=== PATIENT | female | born 1980 | race Caucasian/White ===

== ENCOUNTER 2020-02-24 14:39 | Observation (INO) ==
[2020-02-24] MEDS ORDERED: SODIUM CHLORIDE 0.9% 1000ML 500 ML IV ONE (17:32)
--- NOTE | 2020-02-24 17:40 | Emergency Department Note ---
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 CHIEF COMPLAINT: Weakness HISTORY OF PRESENT ILLNESS: The patient is a 40-year-old female who presents to the ED with issues with her speech. She feels dizzy as well. This all began about 4 hours ago while she was at work. She was pushing a cart. She felt foggy, she felt dizzy, she felt like she might faint. She was having difficulty with her speech. She presents by ambulance. The patient states that she has been in baseline health. She felt fine earlier today. She has no history of stroke or TIA. She has not had fever, chills, cough or congestion. She has been in baseline health. There have been no urinary complaints. REVIEW OF SYSTEMS: See HPI for pertinent positives and negatives. A total of ten systems were reviewed and were otherwise negative. PMHx/PSHx: See Below SOCIAL HISTORY: See Below. PHYSICAL EXAM: GENERAL: Patient is in no acute distress. HEENT: No acute trauma, normocephalic atraumatic, mucous membranes moist, no nasal congestion, no scleral icterus. NECK: No stridor, no adenopathy, no meningismus, trachea is midline. LUNGS: Clear to auscultation bilaterally, no wheeze, no rhonchi, breath sounds equal. HEART: Without murmurs gallops or rubs, regular rate and rhythm. ABDOMEN: Soft, nontender, bowel sounds positive, no hernias, no peritonitis. EXTREMITIES: No cyanosis or edema, full range of motion of all the joints without pain or difficulty, no signs for acute trauma. NEUROLOGIC: Oriented x 3. She has some stuttering and difficulty with her speech. There is no slurred speech. A very subtle left facial droop was noted. No cerebellar dysfunction, no extremity drift. SKIN: No rash, no jaundice, no diaphoresis. DIFFERENTIAL DIAGNOSIS: Infection, dehydration, metabolic abnormality, hypo/hyperglycemia, stroke, TIA, medication reaction, electrolyte disturbance, anemia, hypoxia, cardiac sources, intracerebral event, toxicologic, neurologic, as well as other pathologies. EMERGENCY DEPARTMENT COURSE/PROCEDURES: ECG: Indication was potential stroke. The ECG shows a normal sinus rhythm with a rate of 68. The QTc is 444. There is no ST elevation, no PVCs. Continuous Cardiac Monitoring: An order was placed for continuous cardiac monitoring. The monitor shows a rate of 71 with normal sinus rhythm. Critical Care Note: I have personally spent greater than 48 minutes of critical care time in the direct management of this patient. This includes bedside care, interpretation of diagnostic studies, and testing, discussion with consultants, patient, and family members, and other required patient management activities. This 48 minutes is in excess of all separately billable procedures. Orthostatic vital signs were negative. MEDICAL DECISION MAKING: There is no leukocytosis or concerning anemia. There is a normal platelet count. No coagulopathy. No significant electrolyte abnormality or kidney failure. No worrisome liver enzyme elevation. ECG showed a sinus rhythm, no acute ischemia. Cardiac enzyme testing x1 is not consistent with acute cardiac injury. Urinalysis does not show any evidence for infection. Valproic acid level was therapeutic at 54. Brain CT showed no acute bleed or mass-effect. CT angiogram of the head and neck were done, there was no occlusion, no aneurysm, no evidence for dissection. On exam, the patient had some difficulty finding her words and there was some stuttering of her speech. No slurred speech. No extremity deficits. During the patient's stay, she began complaining of a mild headache which was bitemporal. The patient was made a stroke alert given her presentation. She was seen by the [place] neurology team via telemedicine. The patient is not a candidate for TPA given the timeframe, she is out of the therapeutic window. In addition, the neurologist from [place] believes this is more likely a complex migraine than stroke. The patient is being hospitalized for a thorough stroke work-up. MRI has been recommended. The patient was given IV saline, IV Tylenol and IV Depakote. The Depakote IV was requested by the [facility] neurologist. I spoke to the patient and her family, I talked with the case planner. The on- call hospitalist was consulted. Past Med/Surg History Medical History Bipolar disorder Bipolar disorder Depression Surgical History No pertinent past surgical history S/P wrist surgery Social History Smoking Status: Never smoker Tobacco Type: Cigarettes Hx Alcohol Use: No Hx Substance Use: No Preferred Language: Brazilian Communication Ability: Effective Beliefs That Will Affect Care: None Current Living Situation: Spouse Feels Safe at Home: Yes Safety Concerns: Feels Safe At This Time Allergies Allergies Allergy/AdvReac Type Severity Reaction Status Date / Time bee venom protein (honey bee) Allergy Severe Anaphylaxis Verified 02/24/20 19:06 Home Meds Home Medications Medication Instructions Recorded Confirmed epinephrine [EpiPen] 0.3 mg IM DIRECTED PRN 09/02/19 02/24/20 sertraline 100 mg PO HS 09/02/19 02/24/20 divalproex 1,000 mg PO HS 02/24/20 02/24/20 hydroxyzine HCl 25 mg PO BID 02/24/20 02/24/20 Results & Data (ED) Vital Signs Vital Signs - 24 hr 02/24/20 14:58 02/24/20 17:22 02/24/20 17:24 Temperature 36.9 C Temperature Source Oral Pulse Rate - Lying 69 Pulse Rate - Sitting 69 Pulse Rate - Standing 73 Pulse Rate 72 Pulse Rate [Left Finger] 71 Pulse Rate from SpO2 Sensor 71 Pulse Rhythm Regular Pulse Rhythm [Left Finger] Pulse Strength Normal Respiratory Rate 18 16 18 Respiratory Effort / Characteristics Non-Labored Spontaneous Respiratory Depth Normal Respiratory Pattern Regular Blood Pressure - Lying 119/60 Blood Pressure - Sitting 110/77 Blood Pressure- Standing 138/76 Blood Pressure 111/57 L 119/60 Blood Pressure [Left Arm] 126/65 Blood Pressure Mean 75 79 Blood Pressure Mean [Left Arm] 85 Blood Pressure Position Sitting Blood Pressure Position [Left Arm] Pulse Oximetry 98 100 99 Oxygen Delivery Method Room Air Room Air Room Air Sepsis Recent Fever Within 48 Hours No Sepsis New/Unexplained Change in Mental Status No Sepsis Action Taken by Nursing No Action Required 02/24/20 17:25 02/24/20 17:26 02/24/20 17:27 Temperature Temperature Source Pulse Rate - Lying Pulse Rate - Sitting Pulse Rate - Standing Pulse Rate 72 79 81 Pulse Rate [Left Finger] Pulse Rate from SpO2 Sensor 72 83 81 Pulse Rhythm Pulse Rhythm [Left Finger] Pulse Strength Respiratory Rate 18 21 14 Respiratory Effort / Characteristics Respiratory Depth Respiratory Pattern Blood Pressure - Lying Blood Pressure - Sitting Blood Pressure- Standing Blood Pressure 110/77 138/76 Blood Pressure [Left Arm] Blood Pressure Mean 90 104 Blood Pressure Mean [Left Arm] Blood Pressure Position Blood Pressure Position [Left Arm] Pulse Oximetry 99 99 99 Oxygen Delivery Method Sepsis Recent Fever Within 48 Hours Sepsis New/Unexplained Change in Mental Status Sepsis Action Taken by Nursing 02/24/20 17:30 02/24/20 17:31 02/24/20 18:05 Temperature Temperature Source Pulse Rate - Lying Pulse Rate - Sitting Pulse Rate - Standing Pulse Rate 76 79 68 Pulse Rate [Left Finger] Pulse Rate from SpO2 Sensor 76 78 67 Pulse Rhythm Pulse Rhythm [Left Finger] Pulse Strength Respiratory Rate 13 17 18 Respiratory Effort / Characteristics Respiratory Depth Respiratory Pattern Blood Pressure - Lying Blood Pressure - Sitting Blood Pressure- Standing Blood Pressure 124/72 Blood Pressure [Left Arm] Blood Pressure Mean 101 Blood Pressure Mean [Left Arm] Blood Pressure Position Blood Pressure Position [Left Arm] Pulse Oximetry 100 100 99 Oxygen Delivery Method Sepsis Recent Fever Within 48 Hours Sepsis New/Unexplained Change in Mental Status Sepsis Action Taken by Nursing 02/24/20 18:06 02/24/20 18:43 02/24/20 18:44 Temperature Temperature Source Pulse Rate - Lying Pulse Rate - Sitting Pulse Rate - Standing Pulse Rate 67 72 72 Pulse Rate [Left Finger] 71 Pulse Rate from SpO2 Sensor 68 69 71 Pulse Rhythm Pulse Rhythm [Left Finger] Regular Pulse Strength Respiratory Rate 16 18 13 Respiratory Effort / Characteristics Non-Labored Spontaneous Respiratory Depth Normal Respiratory Pattern Regular Blood Pressure - Lying Blood Pressure - Sitting Blood Pressure- Standing Blood Pressure 130/62 145/76 H Blood Pressure [Left Arm] 145/76 H Blood Pressure Mean 98 96 Blood Pressure Mean [Left Arm] 99 Blood Pressure Position Blood Pressure Position [Left Arm] Lying Pulse Oximetry 100 99 99 Oxygen Delivery Method Room Air Sepsis Recent Fever Within 48 Hours Sepsis New/Unexplained Change in Mental Status Sepsis Action Taken by Nursing 02/24/20 19:00 02/24/20 19:14 02/24/20 19:30 Temperature Temperature Source Pulse Rate - Lying Pulse Rate - Sitting Pulse Rate - Standing Pulse Rate 66 64 65 Pulse Rate [Left Finger] Pulse Rate from SpO2 Sensor 66 63 64 Pulse Rhythm Pulse Rhythm [Left Finger] Pulse Strength Respiratory Rate 22 16 21 Respiratory Effort / Characteristics Respiratory Depth Respiratory Pattern Blood Pressure - Lying Blood Pressure - Sitting Blood Pressure- Standing Blood Pressure 130/72 Blood Pressure [Left Arm] Blood Pressure Mean 84 Blood Pressure Mean [Left Arm] Blood Pressure Position Blood Pressure Position [Left Arm] Pulse Oximetry 99 99 99 Oxygen Delivery Method Sepsis Recent Fever Within 48 Hours Sepsis New/Unexplained Change in Mental Status Sepsis Action Taken by Nursing 02/24/20 19:31 02/24/20 19:32 02/24/20 20:00 Temperature Temperature Source Pulse Rate - Lying Pulse Rate - Sitting Pulse Rate - Standing Pulse Rate 65 67 70 Pulse Rate [Left Finger] Pulse Rate from SpO2 Sensor 65 68 71 Pulse Rhythm Pulse Rhythm [Left Finger] Pulse Strength Respiratory Rate 19 21 18 Respiratory Effort / Characteristics Respiratory Depth Respiratory Pattern Blood Pressure - Lying Blood Pressure - Sitting Blood Pressure- Standing Blood Pressure 120/85 Blood Pressure [Left Arm] Blood Pressure Mean 99 Blood Pressure Mean [Left Arm] Blood Pressure Position Blood Pressure Position [Left Arm] Pulse Oximetry 98 98 99 Oxygen Delivery Method Sepsis Recent Fever Within 48 Hours Sepsis New/Unexplained Change in Mental Status Sepsis Action Taken by Nursing 02/24/20 20:01 02/24/20 20:30 02/24/20 20:31 Temperature Temperature Source Pulse Rate - Lying Pulse Rate - Sitting Pulse Rate - Standing Pulse Rate 70 63 64 Pulse Rate [Left Finger] Pulse Rate from SpO2 Sensor 68 64 63 Pulse Rhythm Pulse Rhythm [Left Finger] Pulse Strength Respiratory Rate 14 16 17 Respiratory Effort / Characteristics Respiratory Depth Respiratory Pattern Blood Pressure - Lying Blood Pressure - Sitting Blood Pressure- Standing Blood Pressure 124/82 123/71 Blood Pressure [Left Arm] Blood Pressure Mean 90 81 Blood Pressure Mean [Left Arm] Blood Pressure Position Blood Pressure Position [Left Arm] Pulse Oximetry 97 97 97 Oxygen Delivery Method Sepsis Recent Fever Within 48 Hours Sepsis New/Unexplained Change in Mental Status Sepsis Action Taken by Retirement Medications Current Medication List: was personally reviewed by me Laboratory Data Attestation: I reviewed the patient's lab results. Result diagrams: 02/24/20 17:37 02/24/20 17:37 Lab Results 02/24/20 02/24/20 02/24/20 Range/Units 17:37 17:37 17:37 WBC 9.87 (4.8-10.8) K/uL RBC 4.66 (4.2-5.4) M/uL Hgb 13.3 (12.0-16.0) g/dL Hct 40.4 (37-47) % MCV 86.7 (80-100) fL MCH 28.5 (25-34) pg MCHC 32.9 (32-36) g/dL RDW Std Deviation 42.7 (36.4-46.3) fL RDW Coeff of [place] 13.4 (11.5-14.5) % Plt Count 196 (130-400) K/uL MPV 12.5 H (7.4-10.4) fL Immature Gran % (Auto) 0.2 % Neut % (Auto) 65.1 % Lymph % (Auto) 25.8 % [place] % (Auto) 8.0 % Eos % (Auto) 0.7 % Baso % (Auto) 0.2 % Neut # (Auto) 6.42 (1.4-6.5) K/uL Lymph # (Auto) 2.55 (1.2-3.4) K/uL [place] # (Auto) 0.79 H (0.11-0.59) K/uL Eos # (Auto) 0.07 (0-0.5) K/uL Baso # (Auto) 0.02 (0-0.2) K/uL Immature Gran # (Auto) 0.02 (0.00-0.02) K/uL PT 10.4 (9.0-12.0) Seconds INR 1.0 (0.9-1.1) APTT 26.6 (21.0-31.0) Seconds PTT Ratio 1.0 Sodium (136-145) mmol/L Potassium (3.5-5.1) mmol/L Chloride (98-107) mmol/L Carbon Dioxide (21-32) mmol/L Anion Gap (3-11) BUN (7-18) mg/dl Creatinine (0.6-1.2) mg/dl Est Cr Clr Drug Dosing ml/min Est GFR ( Amer) Est GFR (Non-Af Amer) BUN/Creatinine Ratio (10-20) Glucose (70-99) mg/dl POC Glucose (70-99) mg/dl Calcium (8.5-10.1) mg/dl Magnesium (1.8-2.4) mg/dl Total Bilirubin (0.2-1) mg/dl AST (15-37) U/L ALT (12-78) U/L Alkaline Phosphatase (45-117) U/L Troponin I (0-0.045) ng/ml C-Reactive Protein (0-0.29) mg/dl Total Protein (6.4-8.2) gm/dl Albumin (3.4-5.0) gm/dl Globulin (2.5-4.0) gm/dl Albumin/Globulin Ratio (0.9-2) Urine Color Urine Appearance (Clear) Urine pH (4.5-7.5) Ur Specific [place] (1.000-1.030) Urine Protein (Negative) Urine Glucose (UA) (Negative) Urine Ketones (Negative) Urine Blood (Negative) Urine Nitrite (Negative) Urine Bilirubin (Negative) Urine Urobilinogen (Negative) Ur Leukocyte Esterase (Negative) Urine WBC (Auto) (0-5) /hpf Urine RBC (Auto) (0-4) /hpf U Hyaline Cast (Auto) (0-5) /lpf U Epithel Cells (Auto) (0-5) /lpf Urine Bacteria (Auto) (Negative) Valproic Acid (50-100) mcg/ml Blood Type A Negative Antibody Screen NEGATIVE 02/24/20 02/24/20 02/24/20 Range/Units 17:37 17:37 17:37 WBC (4.8-10.8) K/uL RBC (4.2-5.4) M/uL Hgb (12.0-16.0) g/dL Hct (37-47) % MCV (80-100) fL MCH (25-34) pg MCHC (32-36) g/dL RDW Std Deviation (36.4-46.3) fL RDW Coeff of Contreras (11.5-14.5) % Plt Count (130-400) K/uL MPV (7.4-10.4) fL Immature Gran % (Auto) % Neut % (Auto) % Lymph % (Auto) % [place] % (Auto) % Eos % (Auto) % Baso % (Auto) % Neut # (Auto) (1.4-6.5) K/uL Lymph # (Auto) (1.2-3.4) K/uL [place] # (Auto) (0.11-0.59) K/uL Eos # (Auto) (0-0.5) K/uL Baso # (Auto) (0-0.2) K/uL Immature Gran # (Auto) (0.00-0.02) K/uL PT (9.0-12.0) Seconds INR (0.9-1.1) APTT (21.0-31.0) Seconds PTT Ratio Sodium 139 (136-145) mmol/L Potassium 3.8 (3.5-5.1) mmol/L Chloride 107 (98-107) mmol/L Carbon Dioxide 24 (21-32) mmol/L Anion Gap 8.0 (3-11) BUN 10 (7-18) mg/dl Creatinine 0.70 (0.6-1.2) mg/dl Est Cr Clr Drug Dosing 131.5 ml/min Est GFR ( Amer) 124.7 Est GFR (Non-Af Amer) 107.6 BUN/Creatinine Ratio 14.0 (10-20) Glucose 85 (70-99) mg/dl POC Glucose (70-99) mg/dl Calcium 9.1 (8.5-10.1) mg/dl Magnesium 2.2 (1.8-2.4) mg/dl Total Bilirubin 0.2 (0.2-1) mg/dl AST 9 L (15-37) U/L ALT 16 (12-78) U/L Alkaline Phosphatase 47 (45-117) U/L Troponin I < 0.015 (0-0.045) ng/ml C-Reactive Protein < 0.29 (0-0.29) mg/dl Total Protein 7.7 (6.4-8.2) gm/dl Albumin 3.7 (3.4-5.0) gm/dl Globulin 4.0 (2.5-4.0) gm/dl Albumin/Globulin Ratio 0.9 (0.9-2) Urine Color Urine Appearance (Clear) Urine pH (4.5-7.5) Ur Specific [place] (1.000-1.030) Urine Protein (Negative) Urine Glucose (UA) (Negative) Urine Ketones (Negative) Urine Blood (Negative) Urine Nitrite (Negative) Urine Bilirubin (Negative) Urine Urobilinogen (Negative) Ur Leukocyte Esterase (Negative) Urine WBC (Auto) (0-5) /hpf Urine RBC (Auto) (0-4) /hpf U Hyaline Cast (Auto) (0-5) /lpf U Epithel Cells (Auto) (0-5) /lpf Urine Bacteria (Auto) (Negative) Valproic Acid 54 (50-100) mcg/ml Blood Type Antibody Screen 02/24/20 02/24/20 Range/Units 17:49 18:17 WBC (4.8-10.8) K/uL RBC (4.2-5.4) M/uL Hgb (12.0-16.0) g/dL Hct (37-47) % MCV (80-100) fL MCH (25-34) pg MCHC (32-36) g/dL RDW Std Deviation (36.4-46.3) fL RDW Coeff of Contreras (11.5-14.5) % Plt Count (130-400) K/uL MPV (7.4-10.4) fL Immature Gran % (Auto) % Neut % (Auto) % Lymph % (Auto) % [place] % (Auto) % Eos % (Auto) % Baso % (Auto) % Neut # (Auto) (1.4-6.5) K/uL Lymph # (Auto) (1.2-3.4) K/uL [place] # (Auto) (0.11-0.59) K/uL Eos # (Auto) (0-0.5) K/uL Baso # (Auto) (0-0.2) K/uL Immature Gran # (Auto) (0.00-0.02) K/uL PT (9.0-12.0) Seconds INR (0.9-1.1) APTT (21.0-31.0) Seconds PTT Ratio Sodium (136-145) mmol/L Potassium (3.5-5.1) mmol/L Chloride (98-107) mmol/L Carbon Dioxide (21-32) mmol/L Anion Gap (3-11) BUN (7-18) mg/dl Creatinine (0.6-1.2) mg/dl Est Cr Clr Drug Dosing ml/min Est GFR ( Amer) Est GFR (Non-Af Amer) BUN/Creatinine Ratio (10-20) Glucose (70-99) mg/dl POC Glucose 85 (70-99) mg/dl Calcium (8.5-10.1) mg/dl Magnesium (1.8-2.4) mg/dl Total Bilirubin (0.2-1) mg/dl AST (15-37) U/L ALT (12-78) U/L Alkaline Phosphatase (45-117) U/L Troponin I (0-0.045) ng/ml C-Reactive Protein (0-0.29) mg/dl Total Protein (6.4-8.2) gm/dl Albumin (3.4-5.0) gm/dl Globulin (2.5-4.0) gm/dl Albumin/Globulin Ratio (0.9-2) Urine Color Yellow Urine Appearance Clear (Clear) Urine pH 7.0 (4.5-7.5) Ur Specific [place] 1.019 (1.000-1.030) Urine Protein Negative (Negative) Urine Glucose (UA) Negative (Negative) Urine Ketones Negative (Negative) Urine Blood 1+ H (Negative) Urine Nitrite Negative (Negative) Urine Bilirubin Negative (Negative) Urine Urobilinogen Negative (Negative) Ur Leukocyte Esterase Negative (Negative) Urine WBC (Auto) 1-5 (0-5) /hpf Urine RBC (Auto) 0-4 (0-4) /hpf U Hyaline Cast (Auto) 0 (0-5) /lpf U Epithel Cells (Auto) 10-20 H (0-5) /lpf Urine Bacteria (Auto) Negative (Negative) Valproic Acid (50-100) mcg/ml Blood Type Antibody Screen Administered Medications Discontinued Medications Sodium Chloride (Nss 1000ml) 500 mls @ 999 mls/hr IV .Q31M ONE Stop: 02/24/20 18:02 Last Infusion: 02/24/20 18:40 Dose: 0 mls/hr Documented by: [id number] Admin: 02/24/20 18:06 Dose: 999 mls/hr Documented by: [id number] [facility] mg in 100 mls @ 400 mls/hr IV NOW STA Stop: 02/24/20 19:43 Last Infusion: 02/24/20 20:20 Dose: 0 mls/hr Documented by: [id number] Admin: 02/24/20 19:54 Dose: 400 mls/hr Documented by: [id number] Valproic Acid 500 mg/ Dextrose 55 mls @ 55 mls/hr IV NOW STA Stop: 02/24/20 20:28 Last Infusion: 02/24/20 21:25 Dose: 0 mls/hr Documented by: [id number] Admin: 02/24/20 20:21 Dose: 55 mls/hr Documented by: [id number] Ioversol (Optiray 320 125ml) 118 ml IV ONCE ONE Stop: 02/24/20 17:59 Last Admin: 02/24/20 17:58 Dose: 118 ml Documented by: [id number] Imaging Data Radiologist's Impression: CT angio head w con CLINICAL HISTORY: Stroke evaluation TECHNIQUE: CT angiography of the head was performed in a dynamic helical fashion during intravenous administration of 118 cc of Optiray 320. MIP imaging was performed. A dose lowering technique was utilized adhering to the principles of ALARA. CT DOSE: COMPARISON STUDY: No previous studies for comparison. FINDINGS: There are no lesion suspicious for aneurysm. There are no major intracranial branch occlusions. The dural venous sinuses appear patent. IMPRESSION: Normal study. CT angio neck with con CLINICAL HISTORY: Stroke evaluation Aphasia COMPARISON STUDY: No previous studies for comparison. TECHNIQUE: CT angiography was performed from the aortic arch to the skull base. MIP imaging was performed. The patient was scanned in a dynamic helical fashion during intravenous administration of 118 cc of Optiray 320. A dose lowering technique was utilized adhering to the principles of ALARA. CT DOSE: 1138.56 mGy.cm Technique: CT angiogram of the carotid and vertebral arteries was obtained using intravenous contrast and 3-D reconstruction. NASCET criteria was utilized. Findings: The right carotid revealed no evidence of aneurysm and no evidence of dissection. There is no evidence of hemodynamic significant stenosis. The left carotid revealed no evidence of hemodynamic significant stenosis. There is no evidence of aneurysm. There is no evidence of dissection. There is no evidence of hemodynamically significant vertebral stenosis. There is no evidence of vertebral dissection. IMPRESSION: No evidence of hemodynamically significant carotid or vertebral artery stenosis. No evidence of dissection. CT head/brain wo con CLINICAL HISTORY: Stroke evaluation COMPARISON STUDY: 09/02/2019 TECHNIQUE: Axial CT of the brain is performed from the vertex to the skull base. IV contrast was not administered for this examination. A dose lowering technique was utilized adhering to the principles of ALARA. CT DOSE: FINDINGS: No intra or extra-axial mass lesions are visualized. There is no CT evidence of acute cortical infarction. There is no evidence of midline shift. There is no acute hemorrhage. No calvarial fractures are visualized. There is mild ventricular asymmetry unchanged from the preceding study. There is no hydrocephalus There is no evidence of acute sinusitis IMPRESSION: No acute intracranial findings Blood Pressure Blood Pressure Findings: Elevated blood pressure Blood Pressure Disposition: further management by hospitalist Discharge Plan Visit Data Chief Complaint: Dizziness Stated Complaint: DIZZINESS/DIFFICULTY SPEAKING ED Provider: En Wilkinson Discharge Problem: Speech abnormality, Stroke-like symptoms Patient Disposition: Admitted As Inpatient Condition: Good Discharge Instructions Interventions: ED Discharge Assessment Last Done: 02/24/20 21:13 Discharge Problem: Speech abnormality Qualifiers: Speech disturbance type: other speech disturbance Qualified Code(s): R47.89 - Other speech disturbances
[2020-02-24 17:50] LABS: Basophils # (auto) 0.02 K/uL (0-0.2); Basophils % (auto) 0.2 %; Eosinophils # (auto) 0.07 K/uL (0-0.5); Eosinophils % (auto) 0.7 %; Hematocrit (blood only) 40.4 % (37-47); Hemoglobin 13.3 g/dL (12.0-16.0); Immature Granulocytes # (auto) 0.02 K/uL (0.00-0.02); Immature Granulocytes % (auto) 0.2 %; Lymphocytes # (auto) 2.55 K/uL (1.2-3.4); Lymphocytes % (auto) 25.8 %; Mean Corpuscular Hemoglobin 28.5 pg (25-34); Mean Corpuscular Hgb Conc 32.9 g/dL (32-36); Mean Corpuscular Volume 86.7 fL (80-100); Mean Platelet Volume 12.5 fL (7.4-10.4); Monocytes # (auto) 0.79 K/uL (0.11-0.59); Neutrophils # (auto) 6.42 K/uL (1.4-6.5); Neutrophils % (auto) 65.1 %; Platelet Count 196 K/uL (130-400); RDW Coefficient of Variation 13.4 % (11.5-14.5); RDW Standard Deviation 42.7 fL (36.4-46.3); Red Blood Count 4.66 M/uL (4.2-5.4); White Blood Count 9.87 K/uL (4.8-10.8)
[2020-02-24] MEDS ORDERED: OPTIRAY 320 125ml IV ONE (17:58)
[2020-02-24 18:00] LABS: Partial Thromboplastin Time 26.6 Seconds (21.0-31.0); Prothrombin Time 10.4 Seconds (9.0-12.0)
[2020-02-24 18:09] LABS: Alanine Aminotransferase 16 U/L (12-78); Albumin Level 3.7 gm/dl (3.4-5.0); Aspartate Aminotransferase 9 U/L (15-37); Blood Urea Nitrogen 10 mg/dl (7-18); Calcium 9.1 mg/dl (8.5-10.1); Carbon Dioxide 24 mmol/L (21-32); Chloride 107 mmol/L (98-107); Creatinine Clr Calc Pharmacy 131.5 ml/min; Est GFR (African American) 124.7; Est GFR (Non-African American) 107.6; Glucose 85 mg/dl (70-99); Magnesium 2.2 mg/dl (1.8-2.4); Potassium 3.8 mmol/L (3.5-5.1); Sodium 139 mmol/L (136-145)
--- NOTE | 2020-02-24 18:10 | CT Scan Report ---
CT head/brain wo con CLINICAL HISTORY: Stroke evaluation COMPARISON STUDY: 09/02/2019 TECHNIQUE: Axial CT of the brain is performed from the vertex to the skull base. IV contrast was not administered for this examination. A dose lowering technique was utilized adhering to the principles of ALARA. CT DOSE: FINDINGS: No intra or extra-axial mass lesions are visualized. There is no CT evidence of acute cortical infarc tion. There is no evidence of midline shift. There is no acute hemorrhage. No calvarial fractures ar e visualized. There is mild ventricular asymmetry unchanged from the preceding study. There is no hydrocephalus There is no evidence of acute sinusitis IMPRESSION: No acute intracranial findings ACT 112: Negative or not required by law. Electronically signed by: Tab Kelley M.D. 02/24/2020 6:08 PM
--- NOTE | 2020-02-24 18:13 | CT Scan Report ---
CT angio neck with con CLINICAL HISTORY: Stroke evaluation Aphasia COMPARISON STUDY: No previous studies for comparison. TECHNIQUE: CT angiography was performed from the aortic arch to the skull base. MIP imaging was perfo rmed. The patient was scanned in a dynamic helical fashion during intravenous administration of 118 c c of Optiray 320. A dose lowering technique was utilized adhering to the principles of ALARA. CT DOSE: 1138.56 mGy.cm Technique: CT angiogram of the carotid and vertebral arteries was obtained using intravenous contrast and 3-D reconstruction. NASCET criteria was utilized. Findings: The right carotid revealed no evidence of aneurysm and no evidence of dissection. There is no evidenc e of hemodynamic significant stenosis. The left carotid revealed no evidence of hemodynamic significant stenosis. There is no evidence of an eurysm. There is no evidence of dissection. There is no evidence of hemodynamically significant vertebral stenosis. There is no evidence of verte bral dissection. IMPRESSION: No evidence of hemodynamically significant carotid or vertebral artery stenosis. No evidence of disse ction. ACT 112: Negative or not required by law. Electronically signed by: Tab Kelley M.D. 02/24/2020 6:11 PM
[2020-02-24 18:14] LABS: Albumin Globulin Ratio 0.9 (0.9-2); Alkaline Phosphatase 47 U/L (45-117); Bilirubin,Total 0.2 mg/dl (0.2-1); Total Protein 7.7 gm/dl (6.4-8.2); Troponin I < 0.015 ng/ml (0-0.045)
--- NOTE | 2020-02-24 18:16 | CT Scan Report ---
CT angio head w con CLINICAL HISTORY: Stroke evaluation TECHNIQUE: CT angiography of the head was performed in a dynamic helical fashion during intravenous a dministration of 118 cc of Optiray 320. MIP imaging was performed. A dose lowering technique was util ized adhering to the principles of ALARA. CT DOSE: COMPARISON STUDY: No previous studies for comparison. FINDINGS: There are no lesion suspicious for aneurysm. There are no major intracranial branch occlusi ons. The dural venous sinuses appear patent. IMPRESSION: Normal study. ACT 112: Negative or not required by law. Electronically signed by: Tab Kelley M.D. 02/24/2020 6:14 PM
[2020-02-24 18:33] LABS: Appearance Urine Clear (Clear); Bacteria Urine Automated Negative (Negative); Bilirubin Urine Negative (Negative); Blood Urine 1+ (Negative); Cast Urine Automated 0 /lpf (0-5); Color Urine Yellow; Glucose Urine UA Negative (Negative); Ketones Urine Negative (Negative); Leukocyte Esterase Urine Negative (Negative); Nitrite Urine Negative (Negative); Protein Urine Negative (Negative); RBC Urine Automated 0-4 /hpf (0-4); Specific Gravity Urine 1.019 (1.000-1.030); Urobilinogen Urine Negative (Negative)
[2020-02-24] MEDS ORDERED: ACETAMINOPHEN 1,000 MG/100 ML VIAL IV STA (19:29)
[2020-02-24] MEDS ORDERED: VALPROATE SOD 500 MG in DEXTROSE 5% 50 ML IV STA (19:29)
--- NOTE | 2020-02-24 20:10 | History & Physical Report ---
Date of Service February 24, 2020 Assessment & Plan (1) Aphasia: Mrs. Mi is a 40 yo woman without underlying cerebrovascular disease who presented to the emergency department 4 hours after she began to feel dizzy, off-balance, and have issues expressing words while at work. Patient was outside tPA window on arrival. Stroke alert was called and [facility] neurologist ultimately recommended no tPA - [place] neurologist felt as though symptoms resembled complicated mirgraine. - differential at this time includes ischemic stroke vs. complicated migraine (the latter favored by [facility] stroke specialist) - neuro exam significant for left sided facial droop (although reports this is baseline), as well as speech (stuttering, delay in articulation) - Head CT negative. Head and Neck CTA unremarkable. - Brain MRI, TTE, fasting Lipid Panel, HbA1c ordered to complete stroke work up - ESR/CRP (per [facility] neuro recommendations) - neurology consult ordered - neuro checks per protocol - patient will need formal swallow study as she failed bedside eval given facial droop. NPO in meantime - when patient is cleared for oral intake, recommend starting ASA 81mg and high intensity statin in the event ischemic stroke is etiology Diet: NPO DVT ppx: bilateral SCDs Dispo: PCU/Tele Code: Full Code (2) Bipolar disorder: - has been on disability for this condition since age 22 - valproate level therapeutic on admission; patient given 500mg IV dose for he adache - home medication regimen consists of Valproate, Depakote, Sertraline, and hydroxyzine (hold while NPO) History of Present Illness Chief Complaint: Mrs. Mi is a 40 yo woman with a PMHx of bipolar disorder who presented to the emergency department 4 hours after she began to experience several unusual symptoms while at work. Symptoms included dizziness, a sensation of imbalance and difficulty with speaking. 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 She clarifies that she never passed out or fell. Mrs. Mi says that nothing like this has ever happened to her before. When asked if she had an accompanying headache, she reported that she developed mild head pain, but not until she arrived at [facility]. She does have a history of infrequent migraine headaches, but no history of underlying cerebrovascular disease. At the time of evaluation, she reported the dizziness was persistent, but the sensation of imbalance had resolved. Her NIH stroke scale was found to be 3. A stoke alert was called and Dr. Yonas Yoder at [facility] recommend not administering tPA, as she was outside window. Mrs. Mi is not on any hormone therapy. She is a former smoker (8-10 pack year history). PMHx: Bipolar disorder - she has been on Disability for this since age 22. She takes Valproic acid, Depakote, sertraline and hydroxyzine for this condition. Fx: No CVA. Sister has migraine [facility] ED Course: CBC, CMP, Coags, and TSH were normal. Trop x1 undetectable. UA normal. Valproate level 54. EKG showed normal sinus rhythm. Head CT negative. Head and Neck CTA unremarkable. Patient was administered a dose Valproate, 500mg, IV, Tylenol, 100mg IV, and 1 liter of normal saline. Primary Care Provider: NO PCP Allergies Allergy/AdvReac Type Severity Reaction Status Date / Time bee venom protein (honey bee) Allergy Severe Anaphylaxis Verified 02/24/20 19:06 Home Medications Home Medications Medication Instructions Recorded Confirmed Type epinephrine [EpiPen] 0.3 mg IM DIRECTED PRN 09/02/19 02/24/20 History sertraline 100 mg PO HS 09/02/19 02/24/20 History divalproex 1,000 mg PO HS 02/24/20 02/24/20 History hydroxyzine HCl 25 mg PO BID 02/24/20 02/24/20 History Past Med/Surg History Medical History Bipolar disorder Bipolar disorder Depression Surgical History No pertinent past surgical history S/P wrist surgery Social History Smoking Status: Never smoker Tobacco Type: Cigarettes Hx Alcohol Use: No Hx Substance Use: No Preferred Language: Haitian Communication Ability: Effective Beliefs That Will Affect Care: None Current Living Situation: Spouse Feels Safe at Home: Yes Safety Concerns: Feels Safe At This Time Review of Systems Cardiovascular: + lightheadedness Neurologic: + headache(s) Physical Exam Constitutional: WD/WN, vitals as above cooperative; no acute distress Eyes: PERRL, conjunctivae normal, anicteric sclerae normal accommodation and EOM intact bilaterally ENMT: external ear and nose normal, oropharynx normal Neck: normal visual inspection and trachea midline Respiratory: normal respiratory effort, lungs clear to auscultation Auscultation: no crackles, no rales, no rhonchi and no wheezes Cardiovascular: RRR, no murmur, no edema Heart Sounds: normal S1 and normal S2 Palpation: no thrill Vessels: normal carotid upstroke; no carotid bruit Extremities: no pedal edema Gastrointestinal (Abdomen): normal bowel sounds, soft, nontender, no hepatosplenomegaly Skin: no rashes, warm and dry Neurologic: moves all extremities and awake; + CN's not intact (Left facial droop) and no focal motor deficits Speech / Cognition: + expressive aphasia (delay with word expression ); no receptive aphasia Motor/Sensory: no tremor and no sensory deficit Cranial Nerves: normal facial strength and normal hearing Coordination: normal mowihl-tb-gpsl test, normal bwjl-fg-[id number] test and normal rapid alternating movements Speech- not slurred, not dysarthric, but she stutters at times, and there appears to be a delay in her verbal responses when posed questions. Psychiatric: A+Ox3, euthymic affect Results & Data Results & Data ([facility]) Vital Signs (Past 12 Hours) Vital Signs Temp Pulse Pulse Resp BP BP Pulse Ox 02/24/20 19:31 65 19 120/85 98 02/24/20 19:30 65 21 99 02/24/20 19:14 64 16 130/72 99 02/24/20 19:00 66 22 99 02/24/20 18:44 72 71 13 145/76 H 145/76 H 99 02/24/20 18:43 72 18 99 02/24/20 18:06 67 16 130/62 100 02/24/20 18:05 68 18 99 02/24/20 17:31 79 17 124/72 100 02/24/20 17:30 76 13 100 02/24/20 17:27 81 14 99 02/24/20 17:26 79 21 138/76 99 02/24/20 17:25 72 18 110/77 99 02/24/20 17:24 18 119/60 99 02/24/20 17:22 71 16 126/65 100 02/24/20 14:58 36.9 C 72 18 111/57 L 98 Supervising Physician Co-Signing Physician Notes Patient seen and examined, chart reviewed, case discussed with Dr. Estrada and I agree with her assessment and plan as documented above. Briefly, patient is a 40-year-old female presenting with episode of dizziness/imbalance and word finding difficulty, question of left facial droop in the ER. On exam patient is afebrile, hemodynamically stable, no acute distress Skinwarm, dry, intact HEENTnormocephalic atraumatic, pupils equal and reactive, neck supple, moist mucous membranes Heart+ S1, S2, regular, no M/R/G LungsCTA Abdomensoft, nontender, nondistended with normoactive bowel sounds Neurocranial nerves grossly intact, sensation to light touch intact, strength symmetrical 5 out of 5 Labs and images reviewed Assessment/[id number] female with history of bipolar disorder, depression and migraine presents with episode of transient dizziness/imbalance and word finding difficulty.? CVA/TIA. Code stroke called and case discussed with [facility] neurology. No TPA administered Check MRI and 2D echo Neurology consult as above Remainder of plan as above Resident Activity Tracking Resident Involvement: Resident Care Provided Care Provided: Adult Hospital Medicine
[2020-02-24] MEDS ORDERED: ONDANSETRON INJ 2 MG/ML 2 ML VIAL IV PRN (21:49)
[2020-02-24] MEDS ORDERED: POLYETHYLENE (MIRALAX) 17 GM PACK PO PRN (21:49)
[2020-02-24] MEDS ORDERED: PHARMACIST DISCHARGE MED REC CONSULT PRN (21:49)
[2020-02-24] MEDS ORDERED: GADOBUTROL 65ML VIAL IV ONE (23:07)
--- NOTE | 2020-02-25 03:41 | Billing Data ---
Date of Service February 24, 2020 Coding Level of Care Code 34312 OBS Care - Level 2
[2020-02-25 06:54] LABS: Basophils # (auto) 0.01 K/uL (0-0.2); Basophils % (auto) 0.1 %; Eosinophils # (auto) 0.14 K/uL (0-0.5); Eosinophils % (auto) 1.9 %; Hematocrit (blood only) 37.7 % (37-47); Hemoglobin 12.5 g/dL (12.0-16.0); Immature Granulocytes # (auto) 0.02 K/uL (0.00-0.02); Immature Granulocytes % (auto) 0.3 %; Lymphocytes # (auto) 2.37 K/uL (1.2-3.4); Lymphocytes % (auto) 31.7 %; Mean Corpuscular Hemoglobin 28.8 pg (25-34); Mean Corpuscular Hgb Conc 33.2 g/dL (32-36); Mean Corpuscular Volume 86.9 fL (80-100); Mean Platelet Volume 12.6 fL (7.4-10.4); Monocytes # (auto) 0.76 K/uL (0.11-0.59); Monocytes % (auto) 10.2 %; Neutrophils # (auto) 4.18 K/uL (1.4-6.5); Neutrophils % (auto) 55.8 %; Platelet Count 163 K/uL (130-400); RDW Coefficient of Variation 13.5 % (11.5-14.5); RDW Standard Deviation 43.4 fL (36.4-46.3); Red Blood Count 4.34 M/uL (4.2-5.4); White Blood Count 7.48 K/uL (4.8-10.8)
--- NOTE | 2020-02-25 07:01 | Magnetic Resonance Report ---
MRI OF THE BRAIN COMBO CLINICAL HISTORY: Dizziness. Loss of balance. Strokelike symptoms. COMPARISON STUDY: CT of the brain dated 02/24/2020. TECHNIQUE: MRI of the brain was performed utilizing various T1 and T2-weighted sequences in the axial , sagittal, and coronal planes. Contrast-enhanced sequences were acquired following the administratio n of 10 cc of Gadavist. FINDINGS: Brain parenchyma: The brain parenchyma is normal in appearance. There is no hemorrhage or mass effect . There is no restricted diffusion to suggest acute ischemia. No enhancing mass lesion is identified on the postcontrast images. Meza-white matter differentiation is preserved. No extra-axial fluid pau ection is seen. The cerebellar tonsils are normal in configuration. Ventricles, sulci, and cisterns: Normal in configuration. Pituitary and sella: Unremarkable. Intracranial vasculature: Normal flow voids are maintained at the skull base. Orbits: The bony orbits are grossly intact. Orbital contents are normal in appearance. Sinuses and mastoids: Clear. Calvarium: Unremarkable. Cervical cord: Partially visualized cervical spinal cord is normal in morphology and signal intensity . IMPRESSION: No acute intracranial abnormality. ACT 112: Negative or not required by law. Electronically signed by: En Rosado M.D. 02/25/2020 6:59 AM
[2020-02-25 07:22] LABS: BUN Creatinine Ratio 15.2 (10-20); Calcium 8.5 mg/dl (8.5-10.1); Creatinine Clr Calc Pharmacy 143.8 ml/min; Est GFR (African American) 128.5; Est GFR (Non-African American) 110.8; Potassium 3.9 mmol/L (3.5-5.1)
[2020-02-25] MEDS ORDERED: ACETAMINOPHEN 1000 MG/100 ML IV IV ONE (08:08)
[2020-02-25 09:03] LABS: Estimated Average Glucose 103 mg/dl; Hemoglobin A1C 5.2 % (4.5-5.6)
--- NOTE | 2020-02-25 09:22 | Neurology Consultation ---
Date of Consultation February 25, 2020 Assessment & Plan (1) Stroke-like symptoms: Bessie Mi is a 40 yo woman w/ PMH of bipolar disorder, depression and h/o dizziness in August 2019 in the setting of [facility] with acute onset of dizziness, word finding difficulty and questionable facial droop. # Dizziness/word finding difficulty in the setting of headache: most likely migrainous in nature. likely a variant of her baseline migraines, could be worse due to recent stress vs being perimenopausal. A1c 5.2, LDL 124 - continue home depakote 1000mg qhs - would benefit from having an acute treatment such as imitrex (script can be given prior to discharge) - complete TIA workup as already doing - no BP CAP necessary - follow up with PCP on TIA prevention goals, including BP<130/80, LDL<70, A1c<7 - consider starting atorvastatin - no reason to follow up with neurology unless headaches become more frequent (more than 6 days per month) - she is stable for discharge from a neurology standpoint - she is stable to return to work on Thursday from a neurological standpoint Thank you for this interesting consult. Plan of care discussed with primary team. Please call or text with questions. (2) Bipolar disorder: (3) Migraine without aura and responsive to treatment: History of Present Illness Attending Physician: Marta Perla MD History of Present Illness Bessie Mi is a 40 yo woman w/ PMH of bipolar disorder, depression and h/o dizziness in August 2019 in the setting of [facility] with acute onset of dizziness, word finding difficulty and questionable facial droop. 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 In the ED, patient afebrile, BP 111/57, heart rate 72, respiratory rate 18, satting 98% on room air. Labs notable for WBC 9.87, hemoglobin 13.3, platelets 196, electrolytes within normal, creatinine 0.7, glucose 85, INR 1.0, LFTs within normal, troponin negative, CRP less than 0.29, Depakote level 54, UA no infection. Images independently reviewed. CT head shows no hemorrhage or hypodensity. 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 MRI brain shows no acute or chronic infarct, minimal small vessel disease, and asymmetric lateral ventricles (left greater than right). On examination today, she reports that she was at work and had just eaten lunch when she got up and noticed acute onset of dizziness, described first as room spinning, then as a sensation of lightheadedness like she was going to pass out. She also noticed word finding difficulty and feeling of "being stupid". This occurred around 1:30pm. She started to notice a headache around 5pm that has continued into today. Now rates her headache 7/10 in severity with mild photo/phonophobia but no other associated symptoms. Dizziness has resolved for the most part this morning. She reports having about one migrainous headache per month that is unilateral a/w phonophobia and photophobia, severe in nature, lasts hours and has no associated aura in the past. Denies having any current numbness/tingling/weakness at any point during this event. Denies any LoC, convulsive movements, automatisms. Has not had a similar event in the past but headache is similar. She believes current headache to be due to lack of food. usually takes ibuprofen for headaches with some resolution. No recent illness, fevers, neck stiffness. Has been taking home depakote without any missed doses. Not on OCPs, non-smoker. Allergies Allergy/AdvReac Type Severity Reaction Status Date / Time bee venom protein (honey bee) Allergy Severe Anaphylaxis Verified 02/24/20 19:06 Home Medications Home Medications Medication Instructions Recorded Confirmed Type epinephrine [EpiPen] 0.3 mg IM DIRECTED PRN 09/02/19 02/24/20 History sertraline 100 mg PO HS 09/02/19 02/24/20 History divalproex 1,000 mg PO HS 02/24/20 02/24/20 History hydroxyzine HCl 25 mg PO BID 02/24/20 02/24/20 History Patient History Medical History Bipolar disorder Bipolar disorder Depression Surgical History No pertinent past surgical history S/P wrist surgery Social History Smoking Status: Never smoker Tobacco Type: Cigarettes Hx Alcohol Use: No Hx Substance Use: No Preferred Language: American Communication Ability: Effective Beliefs That Will Affect Care: None Current Living Situation: Spouse Feels Safe at Home: Yes Safety Concerns: Feels Safe At This Time Review of Systems Review of Systems: 14 point review of systems completed and negative except as in HPI. Exam (Neuro) Physical Exam: General Exam: GEN: NAD, sitting down in examination bed. HEENT: No conjunctival injection, no rhinorrhea CV: RRR on monitor, no significant edema. PULM: Nonlabored respirations on room air. Neuro Exam: MS: Awake and Alert. Oriented to person, place, and date. Speech fluent and appropriate without dysarthria or paraphasic errors. Language intact including naming, comprehension, repetition. Cognition and memory grossly intact. Attention intact. No neglect. CN: Visual rhodes full, + blink to threat bilaterally. No extinction to double simultaneous stimuli. Normal fundoscopic exam. PERRLA OU. EOMI without nystagmus. Facial sensation intact to LT. Facial muscles full and symmetric. Hearing intact to finger rub bilaterally. Uvula midline with symmetric palatal elevation. SCMs and shoulder shrug normal. Tongue midline. MOTOR: Normal bulk and tone. No pronator drift. BUE strength 5/5 at deltoids, biceps, triceps, wrist flexors and extensors, and finger flexors bilaterally. BLE strength 5/5 at iliopsoas, hamstrings, quadriceps, tibialis anterior, and gastrocnemius bilaterally. REFLEXES: 2+ at biceps, triceps, brachioradialis, 2+ patella, and Achilles bilat erally. Flexor plantar responses bilaterally. SENSORY: Intact to LT throughout, no extinction to double simultaneous stimuli. COORDINATION: No dysmetria or ataxia on [id number] bilaterally. Normal Wendy bilaterally. GAIT: Deferred due to physical status. NIH STROKE SCALE 1A. Level of Consciousness (0-3) = 0 1B. LOC Questions (0-2) = 0 1C. LOC Commands (0-2) = 0 2. Best Horizontal Gaze (0-2) = 0 3. Visual Rhodes (0-3) = 0 4. Facial Palsy (0-3) = 0 5. Motor Arm Right (0-4) = 0 Left (0-4) = 0 6. Motor Leg Right (0-4) = 0 Left (0-4) = 0 7. Limb Ataxia (0-2) = 0 8. Sensory (0-2) = 0 9. Best Language (0-3) = 0 10. Dysarthria (0-2) = 0 11. Extinction and Inattention (0-2) = 0 NIHSS TOTAL = 0 Results & Data ([facility]) Vital Signs (Past 12 Hours) Vital Signs Temp Pulse Resp BP BP Pulse Ox Pulse Ox 02/25/20 07:53 36.7 C 80 17 100/67 98 02/25/20 05:13 36.7 C 65 17 119/76 98 02/24/20 23:30 36.6 C 63 18 107/65 96 02/24/20 21:55 37.0 C 69 17 123/76 96 02/24/20 21:49 96 PG Care Time/CCT Total # of Minutes Spent Total Time Spent with Patient: Total time spent is greater than 50% in coordination of care (as documented) at patient's floor/unit and/or counseling patient: Coding Level of Care Code 05138 OBS Care - Level 3 Diagnoses Stroke-like symptoms R29.90 Bipolar disorder F31.9 Migraine without aura and responsive to treatment G43.009
--- NOTE | 2020-02-25 12:45 | Discharge Summary ---
Date of Service February 25, 2020 Admission HPI Per Admitting Provider Mrs. Mi is a 40 yo woman with a PMHx of bipolar disorder who presented to the emergency department 4 hours after she began to experience several unusual symptoms while at work. Symptoms included dizziness, a sensation of imbalance and difficulty with speaking. 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 She clarifies that she never passed out or fell. Mrs. Mi says that nothing like this has ever happened to her before. When asked if she had an accompanying headache, she reported that she developed mild head pain, but not until she arrived at [facility]. She does have a history of infrequent migraine headaches, but no history of underlying cerebrovascular disease. At the time of evaluation, she reported the dizziness was persistent, but the sensation of imbalance had resolved. Her NIH stroke scale was found to be 3. A stoke alert was called and Dr. Yonas Yoder at [facility] recommend not administering tPA, as she was outside window. Mrs. Mi is not on any hormone therapy. She is a former smoker (8-10 pack year history). PMHx: Bipolar disorder - she has been on Disability for this since age 22. She takes Valproic acid, Depakote, sertraline and hydroxyzine for this condition. Fx: No CVA. Sister has migraine [facility] ED Course: CBC, CMP, Coags, and TSH were normal. Trop x1 undetectable. UA normal. Valproate level 54. EKG showed normal sinus rhythm. Head CT negative. Head and Neck CTA unremarkable. Patient was administered a dose Valproate, 500mg, IV, Tylenol, 100mg IV, and 1 liter of normal saline. Admission Exam Per Admitting Provider Constitutional: WD/WN, vitals as above cooperative; no acute distress Eyes: PERRL, conjunctivae normal, anicteric sclerae normal accommodation and EOM intact bilaterally ENMT: external ear and nose normal, oropharynx normal Neck: normal visual inspection and trachea midline Respiratory: normal respiratory effort, lungs clear to auscultation Auscultation: no crackles, no rales, no rhonchi and no wheezes Cardiovascular: RRR, no murmur, no edema Heart Sounds: normal S1 and normal S2 Palpation: no thrill Vessels: normal carotid upstroke; no carotid bruit Extremities: no pedal edema Gastrointestinal (Abdomen): normal bowel sounds, soft, nontender, no hepatosplenomegaly Skin: no rashes, warm and dry Neurologic: moves all extremities and awake; + CN's not intact (Left facial droop) and no focal motor deficits Speech / Cognition: + expressive aphasia (delay with word expression ); no receptive aphasia Motor/Sensory: no tremor and no sensory deficit Cranial Nerves: normal facial strength and normal hearing Coordination: normal ikhifa-iu-rurc test, normal biet-wl-apls test and normal rapid alternating movements Speech- not slurred, not dysarthric, but she stutters at times, and there appears to be a delay in her verbal responses when posed questions. Psychiatric: A+Ox3, euthymic affect Principal Diagnosis Complex Migraine Discharge Exam Constitutional WD/WN, vitals as above cooperative; no acute distress Eyes PERRL, conjunctivae normal, anicteric sclerae normal accommodation and EOM intact bilaterally ENMT external ear and nose normal, oropharynx normal Neck normal visual inspection and trachea midline Respiratory normal respiratory effort, lungs clear to auscultation Auscultation: no crackles, no rales, no rhonchi and no wheezes Cardiovascular RRR, no murmur, no edema Heart Sounds: normal S1 and normal S2 Palpation: no thrill Vessels: normal carotid upstroke; no carotid bruit Extremities: no pedal edema Gastrointestinal (Abdomen) normal bowel sounds, soft, nontender, no hepatosplenomegaly Musculoskeletal no cyanosis or clubbing, extremities motor strength 5/5 Skin no rashes, warm and dry Neurologic CN's II-XI intact bilaterally (Minimal L facial droop ), moves all extremities and awake; no focal motor deficits Speech / Cognition: + expressive aphasia (delay with word expression, improved); no receptive aphasia Motor/Sensory: no tremor and no sensory deficit Cranial Nerves: normal facial strength and normal hearing Coordination: normal mlnpmj-ki-psiy test, normal uboa-th-delo test and normal rapid alternating movements Psychiatric A+Ox3, euthymic affect Discharge Data Allergies Allergy/AdvReac Type Severity Reaction Status Date / Time bee venom protein (honey bee) Allergy Severe Anaphylaxis Verified 02/24/20 19:06 Consultations 02/24/20 19:31 ED Decision to Admit Stat 02/24/20 21:49 Consult Case Management - Discharge Planning Routine Consult Neurology Routine Ordered Studies 02/24/20 17:33 CT angio head w con Stat CT angio neck with con Stat CT head/brain wo con Stat 02/24/20 21:49 MR brain wo/w con Routine Hospital Course (1) Aphasia: Mrs. Mi is a 40 yo woman without underlying cerebrovascular disease who presented to the emergency department 4 hours after she began to feel dizzy, off-balance, and have issues expressing words while at work. Patient was outside tPA window on arrival. Stroke alert was called and [facility] neurologist ultimately recommended no tPA - [facility] neurolog[place] felt as though symptoms resembled complicated migraine. Aphasia / Complex Migraine - differential at time of admission included ischemic stroke vs. complicated migraine (the latter favored by [facility] stroke specialist) - neuro exam significant for left sided facial droop (although reports this is baseline), as well as speech (stuttering, delay in articulation) - Head CT negative. Head and Neck CTA unremarkable. - Lipid Panel, HgbA1C, ESR, CRP within normal limits. - neurology consult ordered - believed symptoms more migrainous in nature. -Recommended Imitrex for acute treatment of headaches in future. -Can consider starting atorvastatin outpatient, but LDL 124 - neuro checks per protocol were conducted, patients symptoms were rapidly improving - Patient had failed the bedside swallow eval due to the L facial droop, but passed swallow study. - Patient was cleared from a Neurology standpoint for discharge. - Patient discharged home and instructed to continue her home medications, also given a script for Imitrex 25mg PRN for headaches. Bipolar Disorder -Diagnosis since age 22 -Valproic acid level WNL in ED -Continue home medications Dispo: Home Code: Full Code (2) Bipolar disorder: Total Time Total Time Spent Total Time Spent (In Minutes): see attending attestation Discharge Plan Discharge Items Patient Disposition: Home - Self-Care Reason For Visit: APHASIA Discharge Diagnosis: Complex Migraine Condition on Discharge: Good Activity: Resume your previous activity Non-emergency contact: Primary Care Provider Call non-emergency contact if: you have any medication questions and your symptoms worsen Follow-up/Referrals: PCP,NO [Primary Care Provider] - Diet: Regular Addtl Attending Provider Instructions: Mrs. Mi, It was our pleasure caring for you at [facility] from 02/23 to 02/25/2020 for your dizziness, aphasia, and L facial/foot numbness. In the ED you also noted that you had a headache and there was initial concern for stroke or TIA (mini-stroke). You spoke with our manager relationship neurologist at [place] who recommended at that time that blood thinner or clot busting medications were not to be used as you had already had your symptoms for over 4 hours. They also believed at that time that your symptoms were due more to a Complex Migraine (Migraine that can present with other symptoms, sometimes similar to stroke such as weakness, numbness, tingling, facial droop, visual changes). You had several imaging studies including a Head CT, Neck CTA, and Brain MRI which were all NORMAL. You were admitted to the hospital for evaluation of your symptoms. While here, you noted significant improvement over night. You did have a slight he adache which you were treated with IV Tylenol. You were evaluated by our Neurologist in person who felt that your symptoms were again more due to headaches than a stroke. She recommended a medication called Imitrex. You can take this medication when a headache occurs. We also recommend that you follow up with your PCP in the next week in [facility]. Please follow the below instructions: -Please lease picker and take Imitrex 25mg as needed for a headache. You can take a second dose after 2 hours if symptoms do not improve daily. -Please set up and schedule an appointment with your PCP in the next week. -If your symptoms return or worsen, please return to the ED for evaluation. Pending Studies at Discharge: No Stand-Alone Forms: My [facility], Smoking Cessation Medications and DC Order Prescriptions: New sumatriptan succinate [Imitrex] 25 mg tablet See Rx Instructions .ROUTE .COMPLEX Qty: 14 RF: 0 Continued sertraline 100 mg tablet 100 mg PO HS RF: 0 epinephrine [EpiPen] 0.3 mg/0.3 mL Auto-Injector 0.3 mg IM DIRECTED PRN (Reason: Allergic Reaction) RF: 0 divalproex 500 mg tablet,delayed release (DR/EC) 1,000 mg PO HS RF: 0 hydroxyzine HCl 25 mg tablet 25 mg PO BID RF: 0 Discharge Orders: Discharge Order (Routine); Ordered 02/25/20 Ordered By: Austin Horner Admission Data Admit Date/Time: 02/24/20 20:37 Attending Provider: Marta Perla Admit Provider: Thal,Christie Primary Care Provider: PCP,NO Other Providers: Josey Mccain Christina R. Other Interventions: Discharge Summary Assessment (RN) Last Done: 02/25/20 13:20 Supervising Physician Co-Signing Physician Notes Resident Physician Supervision Note: I independently interviewed and examined the patient and verified the dougherty history and physical, reviewed labs and image studies, discussed the case with the resident Dr. Horner and agree with the findings and care plan. Resident Activity Tracking Resident Involvement: Resident Care Provided Care Provided: Adult Hospital Medicine
[2020-02-25] MEDS ORDERED: STROKE PATIENT DISCHARGE STA (12:56)
--- NOTE | 2020-02-25 13:03 | Electrocardiogram Report ---
Test Reason : Blood Pressure : / mmHG Vent. Rate : 068 BPM Atrial Rate : 068 BPM P-R Int : 160 ms QRS Dur : 092 ms QT Int : 418 ms P-R-T Axes : 071 064 061 degrees QTc Int : 444 ms Normal sinus rhythm Normal ECG When compared with ECG of 02-SEP-2019 22:51, No significant change was found Confirmed by Yousuf Oliva ([id number]) on 02/25/2020 1:02:44 PM Referred By: REFERRED SELF Confirmed By:Yousuf Oliva
== END 2020-02-25 14:11 | disposition home or self-care (01) ==
LOC: 2S 14:39 → ED 14:39 → SUATTDRO 20:37 → 2S 21:13